=== PATIENT | female | born 1995 | race Caucasian/White ===

== ENCOUNTER 2025-02-22 11:00 | Emergency (ER) | payer MEDICAID | END 2025-02-22 12:10 | disposition home or self-care (01) | LOC: MW.ED 11:00 | DX: K64.5 Perianal venous thrombosis (principal); Z75.3 Unavailability and inaccessibility of health-care facilities; Z88.0 Allergy status to penicillin; Z88.8 Allergy status to other drugs, medicaments and biological substances; Z79.899 Other long term (current) drug therapy | CPT/HCPCS: 46083; 99283; J2003; 46320; 99284 ==